=== PATIENT | male | born 1975 | race Caucasian/White ===

== ENCOUNTER → 2023-09-27 08:38 | Outpatient (REF) | payer OTHER, SELFPAY | LOC: HWRAD 08:38 | PROVIDERS: ATTENDING PHYSICIAN Internal Medicine Hematology & Oncology; FAMILY PHYSICIAN Family Medicine | DX: C11.3 Malignant neoplasm of anterior wall of nasopharynx (principal); C77.0 Secondary and unspecified malignant neoplasm of lymph nodes of head, face and neck | CPT/HCPCS: 70491; 71260; 74177; Q9967 ==

== ENCOUNTER → 2024-09-17 07:26 | Outpatient (REF) | payer OTHER, SELFPAY | LOC: RAD 07:26 | PROVIDERS: ATTENDING PHYSICIAN Internal Medicine Hematology & Oncology; FAMILY PHYSICIAN Family Medicine | DX: C11.3 Malignant neoplasm of anterior wall of nasopharynx (principal); C77.0 Secondary and unspecified malignant neoplasm of lymph nodes of head, face and neck; R11.2 Nausea with vomiting, unspecified | CPT/HCPCS: 70491; 74160; Q9967 ==

== ENCOUNTER → 2024-11-26 07:47 | Outpatient (REF) | payer OTHER, SELFPAY | LOC: PET 07:47 | PROVIDERS: ATTENDING PHYSICIAN Internal Medicine Hematology & Oncology | DX: C11.3 Malignant neoplasm of anterior wall of nasopharynx (principal) | CPT/HCPCS: 78815; A9552 ==

== ENCOUNTER → 2024-12-04 06:44 | Outpatient (REF) | payer OTHER, SELFPAY ==
[2024-12-04 07:02] LABS: Hematocrit 41.5 % (39.0-52.0); Hemoglobin 14.7 g/dL (13.0-18.0); Mean Corp Hgb Conc. 35.4 g/dL (33.0-37.0); Mean Corpuscular Volume 88.3 fL (80.0-94.0); Platelet Count 203 10^3/uL (130-400); Red Cell Dist. Width 12.4 % (11.5-14.5)
[2024-12-04 07:12] LABS: INR 0.97; PT 13.2 Sec (11.4-14.6)
[2024-12-04 07:30] VITALS: BP 103/68; BP_SYST 62
[2024-12-04 09:35] VITALS: BP 122/82; BP_SYST 73
[2024-12-04 09:55] VITALS: BP 110/83
== END ==
LOC: RADI 06:44
PROVIDERS: ATTENDING PHYSICIAN Internal Medicine Hematology & Oncology; FAMILY PHYSICIAN Family Medicine; REFERRING PHYSICIAN Physician Assistant
DX: M89.9 Disorder of bone, unspecified (principal); C11.3 Malignant neoplasm of anterior wall of nasopharynx; Z01.812 Encounter for preprocedural laboratory examination
CPT/HCPCS: 20225; 36415; 77012; 85027; 85610; 88307; 88311; 88333; 88334; 88342; 99152; 99153

== ENCOUNTER → 2024-12-07 06:50 | Outpatient (REF) | payer OTHER, SELFPAY ==
[2024-12-07] VITALS (9 sets, daily range): BP systolic 57–122; BP diastolic 67–83
[2024-12-07] MEDS: ANCEF 10 IV (08:16)
== END ==
LOC: RADI 06:50
PROVIDERS: ATTENDING PHYSICIAN Internal Medicine Hematology & Oncology; FAMILY PHYSICIAN Family Medicine
DX: C11.3 Malignant neoplasm of anterior wall of nasopharynx (principal); C77.0 Secondary and unspecified malignant neoplasm of lymph nodes of head, face and neck
CPT/HCPCS: 36561; 76937; 77001; 99152; 99153; C1788

== ENCOUNTER → 2024-12-24 06:56 | Outpatient (REF) | payer OTHER, SELFPAY ==
[2024-12-24 07:25] VITALS: BP 108/81; BP_SYST 58
[2024-12-24 09:35] VITALS: BP 112/89; BP_SYST 58
[2024-12-24 09:45] VITALS: BP 119/89
== END ==
LOC: RADI 06:56
PROVIDERS: ATTENDING PHYSICIAN Internal Medicine Hematology & Oncology; FAMILY PHYSICIAN Family Medicine
DX: C79.51 Secondary malignant neoplasm of bone (principal); C11.3 Malignant neoplasm of anterior wall of nasopharynx
CPT/HCPCS: 20225; 77012; 88307; 88311; 88333; 88334; 88341; 88342; 88365; 99152; 99153

== ENCOUNTER → 2025-01-08 07:21 | Outpatient (REF) | payer OTHER, SELFPAY ==
[2025-01-08 07:41] LABS: Hematocrit 38.9 % (39.0-52.0); Hemoglobin 13.6 g/dL (13.0-18.0); Mean Corp Hgb Conc. 35.0 g/dL (33.0-37.0); Mean Corpuscular Volume 88.0 fL (80.0-94.0); Nucleated Red Blood Cells % 0 % (-); Platelet Count 153 10^3/uL (130-400); Red Cell Dist. Width 12.4 % (11.5-14.5)
== END ==
LOC: REG 07:21
PROVIDERS: ATTENDING PHYSICIAN Internal Medicine Hematology & Oncology; FAMILY PHYSICIAN Family Medicine
DX: C11.3 Malignant neoplasm of anterior wall of nasopharynx (principal); C77.0 Secondary and unspecified malignant neoplasm of lymph nodes of head, face and neck; R11.2 Nausea with vomiting, unspecified
CPT/HCPCS: 36415; 85025

== ENCOUNTER → 2025-03-02 14:36 | Outpatient (REF) | payer OTHER, SELFPAY ==
[2025-03-02 10:24] LABS: Hematocrit 30.1 % (39.0-52.0); Hemoglobin 10.3 g/dL (13.0-18.0); Mean Corp Hgb Conc. 34.2 g/dL (33.0-37.0); Mean Corpuscular Volume 94.1 fL (80.0-94.0); Platelet Count 195 10^3/uL (130-400); Red Cell Dist. Width 17.8 % (11.5-14.5)
[2025-03-02 11:05] LABS: ALT (SGPT) 35 U/L (0-50); AST (SGOT) 26 U/L (17-59); Albumin 4.1 g/dl (3.5-5.0); Alkaline Phosphatase 81 U/L (38-126); Blood Urea Nitrogen 24 mg/dl (9-20); Calcium 9.4 mg/dl (8.4-10.2); Carbon Dioxide 30 mmol/L (22-30); Chloride 99 mmol/L (98-107); Glucose 91 mg/dl (70-99); Potassium 3.9 mmol/L (3.5-5.1); Sodium 133 mmol/L (135-145); Total Protein 7.0 g/dl (6.3-8.2); eGFR > 60.00
== END ==
LOC: OIDL 14:36
PROVIDERS: ATTENDING PHYSICIAN Internal Medicine Hematology & Oncology
DX: C11.3 Malignant neoplasm of anterior wall of nasopharynx (principal); C77.0 Secondary and unspecified malignant neoplasm of lymph nodes of head, face and neck; R11.2 Nausea with vomiting, unspecified
CPT/HCPCS: 80053; 85025

== ENCOUNTER → 2025-04-12 07:34 | Outpatient (REF) | payer OTHER, SELFPAY | LOC: PET 07:34 | PROVIDERS: ATTENDING PHYSICIAN Internal Medicine Hematology & Oncology | DX: C11.3 Malignant neoplasm of anterior wall of nasopharynx (principal) | CPT/HCPCS: 78815; A9552 ==